=== PATIENT | female | born 1985 | race Two or more races ===

== ENCOUNTER 2020-06-11 10:59 | Emergency (ER) | payer SELFPAY ==
[~2020-06-11] VITALS: Ht 157.5 cm; Wt 52.9 kg
--- NOTE | 2020-06-11 11:28 | NUR ---
TASK RN: PT AMBULATORY TO ROOM 17 W/ C/O CP STARTED 3 DAYS AGO. PT STATES IT IS A BURNING PAIN WORSE W/ PALPATION AND DEEP BREATHING. PT DENIES ANY HX. +NAUSEA DENIES EMESIS. PT RESTING ON GURNEY. NADN. VSS. MONITORS APPLIED.
[2020-06-11] MEDS ORDERED: KETOROLAC 30 MG/1 ML ONE (11:30)
[2020-06-11] MEDS ORDERED: KETOROLAC 30 MG/1 ML IM ONE (11:30)
--- NOTE | 2020-06-11 11:33 | NUR ---
TASK RN: REPORT GIVEN TO YAMILA KRAMER.
[2020-06-11 11:57] LABS: BASOPHILS % (AUTO) 1 % (0-1); EOSINOPHILS % (AUTO) 2 % (1-7); LYMPHOCYTES % (AUTO) 39 % (22-44); MEAN CORPUSCULAR HEMOGLOBIN 31.4 pg (27.0-34.8); MEAN CORPUSCULAR HGB CONC 34.2 g/dL (32.4-35.8); MEAN PLATELET VOLUME 8.6 fL (7.4-10.4); MONOCYTES % (AUTO) 9 % (2-9); NEUTROPHILS % (AUTO) 50 % (42-75); PLATELET COUNT 215 x10^3/uL (130-400); RED CELL DISTRIBUTION WIDTH 12.8 % (9.6-15.2)
[2020-06-11 12:00] LABS: ALBUMIN 3.9 g/dL (3.4-5.0); ANION GAP 8 mmol/L (5-15); CHLORIDE 108 mmol/L (98-107)
[2020-06-11 12:06] LABS: CREATININE 0.62 mg/dL (0.55-1.02); TROPONIN I < 0.015 ng/mL (0.000-0.045)
[2020-06-11 12:08] VITALS: BP 119/73
[2020-06-11 12:08] LABS: MD NO
--- NOTE | 2020-06-11 12:08 | NUR ---
BREAK RN: PT RESTING COMFORTABLY ON GURNEY.
== END 2020-06-11 13:12 | disposition home or self-care (01) ==
LOC: ED 12:45
DX: R07.89 Other chest pain (principal); R11.0 Nausea; R06.02 Shortness of breath
CPT/HCPCS: 36415; 71045; 80048; 82040; 84484; 85025; 85379; 93005; 96372; 99285; J1885